=== PATIENT | female | born 1945 | race Two or more races ===

== ENCOUNTER 2024-06-27 15:29 | Outpatient (CLI) | payer OTHER ==
[~2024-06-27 15:29] MED LIST: DICLOFENAC POTA50 MG PO; MELOXICAM15 MG PO
== END 2024-06-27 15:35 | disposition home or self-care (01) ==
LOC: RAD 15:29
PROVIDERS: ATTEND Physical Medicine & Rehabilitation
DX: M54.50 Low back pain, unspecified (principal); R10.2 Pelvic and perineal pain; M46.1 Sacroiliitis, not elsewhere classified; S33.6XXA Sprain of sacroiliac joint, initial encounter; X58.XXXA Exposure to other specified factors, initial encounter; Y93.9 Activity, unspecified; Y92.9 Unspecified place or not applicable; Y99.9 Unspecified external cause status